=== PATIENT | female | born 1965 | race Hispanic/Latino ===

== ENCOUNTER 2017-07-27 10:56 | Emergency (ER) | payer MEDICAID ==
[2017-07-27 11:54] LABS: Basophils # (Auto) 0.1 K/mm3 (0.0-0.1); Basophils % (Auto) 1.7 % (0.0-1.8); Eosinophils # (Auto) 0.1 K/mm3 (0.0-0.4); Eosinophils % (Auto) 1.5 % (0.0-4.3); Hematocrit 41.4 % (30.3-42.9); Lymphocytes # (Auto) 1.5 K/mm3 (1.2-5.4); Lymphocytes % (Auto) 29.4 % (13.4-35.0); Mean Corpuscular HGB Conc 34 % (30-34); Mean Corpuscular Hemoglobin 30 pg (28-32); Mean Corpuscular Volume 88 fl (79-97); Monocytes # (Auto) 0.4 K/mm3 (0.0-0.8); Monocytes % (Auto) 7.5 % (0.0-7.3); Platelet Count 246 K/mm3 (140-440); Red Cell Distribution Width 13.6 % (13.2-15.2)
[2017-07-27 11:56] LABS: BUN/Creatinine Ratio 13; Blood Urea Nitrogen 10 mg/dL (7-17); Calcium 9.4 mg/dL (8.4-10.2); Hemolysis Index 8
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
[2017-07-28] MEDS ORDERED: PERCOCET 5/325 PO ONE ×2 (02:24→13:39)
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
[2017-07-28] MEDS: CYMBALTA PO SCH (17:49)
[2017-07-28] MEDS: REMERON PO SCH (21:57)
[2017-07-28 22:44] LABS: Bacteria,Urine 1+ /HPF (Negative); Bilirubin,Urine NEG (Negative); Blood,Urine SM (Negative); Color,Urine Yellow (Yellow); Nitrite,Urine NEG (Negative); Protein,Urine <15 mg/dL mg/dL (Negative); Urobilinogen,Urine < 2.0 mg/dL (<2.0)
[2017-07-28 22:51] LABS: Amphetamine Screen,Urine PRESUMPTIVE NEGATIVE; Benzodiazepines Screen,Urine PRESUMPTIVE NEGATIVE; Cannabinoid Screen,Urine PRESUMPTIVE NEGATIVE; Cocaine Screen,Urine PRESUMPTIVE NEGATIVE; Methadone Screen,Urine PRESUMPTIVE NEGATIVE; Opiate Screen,Urine PRESUMPTIVE NEGATIVE
[2017-07-29] MEDS: PERCOCET 5/325 PO PRN ×2 (10:53→21:39)
[2017-07-29] MEDS: CYMBALTA PO SCH (10:53)
--- NOTE | 2017-07-29 14:10 | Progress Note ---
Subjective - Reason for Consult Consult date: 07/29/17 Reason for consult: Psychiatry Follow-up - Chief Complaint Chief complaint: "I want my meds taking care of" 52 y.o. white female presenting to [facility] for SI's. Today the patient is calm and cooperative during the assessment. She stated that she slept last night for the first time in 2 days. She stated that she was worrying about her medications being taking care of. She does rate her anxiety 5/10, with 10 being the worse. She denies SI/HI's and AVH'. She denies any side effects of her medications. Mental Status Exam - Vital signs Last Vital Signs Temp 98.1 F 07/28/17 20:00 Pulse 72 07/28/17 20:00 Resp 18 07/28/17 20:00 BP 136/80 07/28/17 20:00 Pulse Ox 98 07/28/17 20:00 - Exam Narrative exam: MSE: Appearance: calm, cooperative Behavior: regular eye contact Speech: regular rate and tone Mood: "okay" Affect: congruent to mood Thought Process: circumstantial Thought Content: denies SI/HI's and AVH's Motor Activity: ambulatory Cognition: A/O x 3 Insight: variable Judgment: variable Assessment and Plan Impression: MDD, Severe Type. Today the patient is calm and cooperative during the assessment. DDx: R/O Bipolar DO Recommendation/Plan: Continue 1013 with placement to inpatient psy services. Continue Cymbalta 60 mg PO daily for depression, Remeron 15 mg PO HS for sleep consolidation, and Klonopin 0.5 mg PO Q8hrs for anxiety. Discussed the possible suicidality/medication induced patricio reference antidepressants with patient.
[2017-07-29] MEDS: REMERON PO SCH (21:44)
[2017-07-30] MEDS: PERCOCET 5/325 PO PRN ×4 (05:00→22:28)
[2017-07-30] MEDS: CYMBALTA PO SCH (09:37)
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
[2017-07-30] MEDS: REMERON PO SCH (22:30)
[2017-07-31] MEDS: PERCOCET 5/325 PO PRN ×3 (07:30→19:30)
[2017-07-31] MEDS: CYMBALTA PO SCH (11:48)
--- NOTE | 2017-07-31 21:13 | Progress Note ---
Subjective - Reason for Consult Consult date: 07/31/17 Reason for consult: follow up - Chief Complaint Chief complaint: "I want to go back [to the nursing home]" 52 y.o. white female presenting to [facility] for SI's. Today the patient is calm and cooperative during the assessment. She stated that she slept last night.She states she does not think she needs to go to the hospital. She denies SI/HI's. She wants to return to the nursing home. She denies any side effects of her medications. Mental Status Exam - Vital signs Last Vital Signs Temp 98.8 F 07/31/17 07:50 Pulse 91 H 07/31/17 07:50 Resp 15 07/31/17 07:50 BP 115/72 07/31/17 07:50 Pulse Ox 96 07/31/17 07:50 - Exam Narrative exam: Appearance: calm, cooperative Behavior: regular eye contact Speech: regular rate and tone Mood: "okay" Affect: congruent to mood Thought Process: circumstantial Thought Content: denies SI/HI's. no AVH Motor Activity: paraplegia, uses wheelchair Cognition: A/O x 3 Insight: variable Judgment: variable Assessment and Plan Impression: MDD, Severe Type. Today the patient is calm and cooperative during the assessment. No suicidal ideation. No acute safety concerns identified. She attributes her recent symptoms leading to the ER visit were related to not having medications. She is concerned about having enough medications until her next appointment, at the end of the month. Recommendation/Plan: Rescind 1013 and return to nursing home. I communicated with her nursing home leader, Ms. Mcarthur. Her main concern was that Ms. Duvall is not at risk of harming herself or others, and that she has her medications. It is recommended she continue her home medications. She has appointments for Warren Tse MD (psychiatrist) and paint technician in 10 days. Recommend to Continue Cymbalta 60 mg PO daily for depression, Remeron 15 mg PO HS for sleep consolidation, and Klonopin 0.5 mg PO Q8hrs for anxiety. Discussed the possible suicidality/medication induced patricio reference antidepressants with patient. She takes percocet from her pain management provider and reports being on it for years. She denies any side effects. She will need transportation back to the nursing home
[2017-07-31] MEDS: REMERON PO SCH (22:01)
[2017-08-01] MEDS: PERCOCET 5/325 PO PRN (07:09)
[2017-08-01 08:15] VITALS: BP 108/75
--- NOTE | 2017-08-01 10:09 | Progress Note ---
Subjective - Reason for Consult Consult date: 08/01/17 Reason for consult: Psychiatry Follow-up - Chief Complaint Chief complaint: "I want to go back to my [facility]]" 52 y.o. white female presenting to [facility] for SI's. Today the patient is calm and cooperative during the assessment. She stated that she look forward to seeing her psychiatrist once discharged. She denies SI/HI's and AVH's. She denies any side effects of her medications. Mental Status Exam - Vital signs Last Vital Signs Temp 98.4 F 08/01/17 08:14 Pulse 85 08/01/17 08:14 Resp 18 08/01/17 08:14 BP 108/75 08/01/17 08:14 Pulse Ox 96 08/01/17 08:14 - Exam Narrative exam: MSE: Appearance: calm, cooperative Behavior: regular eye contact Speech: regular rate and tone Mood: "okay" Affect: congruent to mood Thought Process: linear Thought Content: denies SI/HI's and AVH's Motor Activity: ambulatory Cognition: A/O x 3 Insight: appropriate Judgment: appropriate Assessment and Plan Impression: MDD, Severe Type. Today the patient is calm and cooperative during the assessment. Patient is no threat to self. DDx: R/O Bipolar DO Recommendation/Plan: 1013 rescinded yesterday. Continue Cymbalta 60 mg PO daily for depression, Remeron 15 mg PO HS for sleep consolidation, and Klonopin 0.5 mg PO Q8hrs for anxiety. Discussed the possible suicidality/medication induced patricio reference antidepressants with patient. She has appointments with Warren Tse MD (psychiatrist) and sign painter helper in 10 days. Supervisor [employer] involvement, patient will need assistance getting back to her [facility].
[2017-08-01] MEDS: CYMBALTA PO SCH (10:21)
== END 2017-08-01 12:16 | disposition home or self-care (01) ==
LOC: ED 10:56 → EEVIPCON 10:56 → ED 08-01 12:16
DX: F29 Unspecified psychosis not due to a substance or known physiological condition (principal); F32.9 Major depressive disorder, single episode, unspecified; F17.200 Nicotine dependence, unspecified, uncomplicated; Z88.8 Allergy status to other drugs, medicaments and biological substances
CPT/HCPCS: 36415; 80048; 80307; 81001; 85025; 99284; G0480; 80320; 99285

== ENCOUNTER 2019-08-12 13:10 | Emergency (ER) | payer MEDICAID ==
[2019-08-12 13:21] VITALS: BP 127/64
--- NOTE | 2019-08-12 14:37 | Emergency Department Report ---
Chief Complaint: Pain General Stated Complaint: LEG AND BACK PAIN - HPI History of Present Illness: 54 y o female presents to Ed with chronic back pain wanting med refill for percocet states dr kim on 08/16/19 Patient states that she was seen by primary care doctor last week and was given Percocet for her pain still to follow-up with the orthopedic patient states she ran out of the medications and is pain. She denies any recent injuries or trauma, fever, dysuria, - ROS Review of Systems: all system reviewed and negative - Exam Vital Signs: Vital Signs 08/12/19 13:20 Temperature 99.1 F Pulse Rate 54 L Respiratory 18 Rate Blood Pressure 127/64 [Right] O2 Sat by Pulse 98 Oximetry Physical Exam: Back exam: No deformities noted, full range of motion., MSE screening note: Focused history and physical exam performed. Due to findings the following was ordered: ED Medical Decision Making - Medical Decision Making 54-year-old female presents with chronic back pain. Discussed the patient follow up with her doctor also be unable to refill her medication ER today. Patient understands instructions. Bowel sounds are normal she is in no acute distress. ED Disposition for MSE Clinical Impression: Chronic back pain Disposition: Z-07 MED SCREENING EXAM-LEFT Is pt being admited?: No Does the pt Need Aspirin: No Condition: Stable Instructions: Chronic Back Pain (ED) Referrals: PRIMARY CARE, [Primary Care Provider] - 3-5 Days Forms: Accompanied Note, Work/School Release Form(ED) Time of Disposition: 14:38
== END 2019-08-12 15:29 | disposition left against medical advice (07) ==
LOC: ED 13:10
DX: M54.9 Dorsalgia, unspecified (principal); G89.29 Other chronic pain
CPT/HCPCS: 99282

== ENCOUNTER 2021-12-07 15:22 | Emergency (ER) | payer SELFPAY ==
[2021-12-07] MEDS ORDERED: oxyCODONE /ACETAMINOPHEN 5-325MG TAB PO ONE (16:00)
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
[2021-12-07 16:34] LABS: Basophils # (Auto) 0.1 K/mm3 (0.0-0.1); Basophils % (Auto) 0.8 % (0.0-1.8); Eosinophils # (Auto) 0.1 K/mm3 (0.0-0.4); Eosinophils % (Auto) 1.5 % (0.0-4.3); Hematocrit 39.4 % (30.3-42.9); Lymphocytes # (Auto) 1.7 K/mm3 (1.2-5.4); Lymphocytes % (Auto) 20.1 % (13.4-35.0); Mean Corpuscular HGB Conc 33 % (30-34); Mean Corpuscular Volume 88 fl (79-97); Monocytes # (Auto) 0.5 K/mm3 (0.0-0.8); Monocytes % (Auto) 5.8 % (0.0-7.3); Platelet Count 272 K/mm3 (140-440); Red Blood Count 4.47 M/mm3 (3.65-5.03); Red Cell Distribution Width 16.5 % (13.2-15.2)
[2021-12-07 16:54] LABS: Alanine Aminotransferase 11 units/L (7-56); Albumin 4.2 g/dL (3.9-5); Blood Urea Nitrogen 16 mg/dL (7-17); Calcium 9.1 mg/dL (8.4-10.2); Hemolysis Index 29
[2021-12-07 16:55] LABS: BUN/Creatinine Ratio 27
[2021-12-07 17:59] LABS: Benzodiazepines Screen,Urine Negative; Cannabinoid Screen,Urine Negative; Cocaine Screen,Urine Negative; Methadone Screen,Urine Negative; Opiate Screen,Urine Negative
[2021-12-07 18:02] LABS: Amphetamine Screen,Urine Positive
[2021-12-07 18:10] LABS: Amorphous Crystals,Urine Few; Bacteria,Urine 1+ /HPF (Negative); Bilirubin,Urine NEG (Negative); Blood,Urine NEG (Negative); Color,Urine Amber (Yellow); Mucus,Urine FEW /HPF; Triple Phosphate Crystal,Urine 1+; Urobilinogen,Urine < 2.0 mg/dL (<2.0)
[2021-12-07] MEDS ORDERED: LORazepam 2 MG/ML VIAL IV ONE (18:40)
[2021-12-07] MEDS ORDERED: LORazepam 2 MG/ML VIAL ONE (22:49)
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
--- NOTE | 2021-12-08 20:18 | Event Note ---
56-year-old female currently on 1013 awaiting acceptance. Vital signs unremarkable
[2021-12-08] MEDS ORDERED: IPRATROPIUM 0.02% NEBU 2.5 ML IH ONE (22:23)
[2021-12-08] MEDS ORDERED: ALBUTEROL 2.5 MG/3 ML NEBU IH ONE (22:23)
[2021-12-08] MEDS: traZODone 50 MG TAB PO SCH (22:43)
[2021-12-08] MEDS: ZIPRASIDONE MESYLATE 20 MG VIAL IM PRN (22:43)
--- NOTE | 2021-12-09 11:17 | Progress Note ---
Subjective - Reason for Consult Consult date: 12/09/21 Reason for consult: Psychosis - Chief Complaint Chief complaint: The patient was seen this morning. She continues to present with disorganized thoughts and paranoia " family putting drugs in the air." PAST PSYCHIATRIC HISTORY: PAST MEDICAL HISTORY: None reported or document Family Psychiatric History: None reported or documented SOCIAL HISTORY REVIEW OF SYSTEMS MENTAL STATUS EXAMINATION Diagnoses: Major depressive disorder with psychotic features Treatment Plan 1013 Continue home meds Zyprexa 5mg po BID Trazodone 50mg po QHS PSYCHOTHERAPY: Supportive psychotherapy provided MEDICAL: Per primary team DELIRIUM PRECAUTIONS: Please re-orient patient frequently, keep lights on during the day, and minimize benzodiazepines and opiates as these medications could worsen patient's confusion. 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 Will follow. Thank you for the consult. Case staffed with Dr. Leger Medications and Allergies Medications and Allergies Mental Status Exam - Vital signs Last Vital Signs Temp 98.9 F 12/09/21 09:53 Pulse 90 12/09/21 09:53 Resp 17 12/09/21 09:53 BP 133/74 12/09/21 09:53 Pulse Ox 97 12/09/21 09:53
--- NOTE | 2021-12-09 11:37 | Emergency Department Report ---
Blank Doc - Documentation Documentation: 56-year-old female on a 1013 for psychosis and paranoid thoughts awaiting plac ement. Patient has a history of chronic pain with Percocet use. [place] prescription monitoring site below patient is requesting pain medication. Last received a dose of Percocet several days ago on December 07 in the ED as per [place] prescription monitoring to site patient takes the following medication 11/20/2021 11/20/2021 1 Oxycodone-Acetaminophen 5-325 90.00 30 Da Bur [id number] Silvano ([id number]) 0 11/05/2021 09/16/2021 1 Clonazepam 1 Mg Tablet 60.00 30 Da Bur [id number] [facility]vano ([id number]) 1 10/21/2021 09/16/2021 1 Oxycodone-Acetaminophen 5-325 90.00 30 Da Bur [id number] [facility]vano ([id number]) 0 10/08/2021 09/16/2021 1 Clonazepam 1 Mg Tablet 60.00 30 Da Bur [id number] [facility]ano ([id number]) 0 09/16/2021 09/16/2021 1 Oxycodone-Acetaminophen 5-325 90.00 30 Da Bur [id number] [facility]vano ([id number]) 0 09/11/2021 07/17/2021 1 Clonazepam 1 Mg Tablet 60.00 30 Da Bur [id number] Silvano ([id number]) 2 Patient is prescribed Percocet 53 25 TID times daily as per [place] prescription monitoring site. She will be placed on Percocet prn tid while in the ED for chronic pain.
[2021-12-09] MEDS: oxyCODONE /ACETAMINOPHEN 5-325MG TAB PO PRN (12:34)
[2021-12-09] MEDS: ZIPRASIDONE MESYLATE 20 MG VIAL IM PRN (17:30)
[2021-12-09] MEDS: traZODone 50 MG TAB PO SCH (22:00)
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
[2021-12-10] MEDS: oxyCODONE /ACETAMINOPHEN 5-325MG TAB PO PRN (14:26)
--- NOTE | 2021-12-10 15:38 | Emergency Department Report ---
Blank Doc - Documentation Documentation: 12/10/21 1530 I have reviewed patient's note from psych. She has been cleared and his 1013 is discontinued. Given this plan for patient to be discharged home with appropriate resources and prescriptions.
[2021-12-10 21:49] VITALS: BP 128/82
== END 2021-12-10 20:30 | disposition home or self-care (01) ==
LOC: ED 15:22 → EEVIPCON 15:22 → ED 12-10 20:30
DX: F15.10 Other stimulant abuse, uncomplicated (principal); I10 Essential (primary) hypertension; F32.9 Major depressive disorder, single episode, unspecified; Z20.822 Contact with and (suspected) exposure to COVID-19; F17.200 Nicotine dependence, unspecified, uncomplicated; F12.90 Cannabis use, unspecified, uncomplicated; Z98.890 Other specified postprocedural states; Z79.899 Other long term (current) drug therapy
CPT/HCPCS: 36415; 80053; 80307; 81001; 85025; 96372; 96374; 99284; J2060; J3486; U0003; 80320; G0480

== ENCOUNTER 2021-12-15 16:45 | Emergency (ER) | payer SELFPAY ==
[2021-12-16 20:24] LABS: Bacteria,Urine 2+ /HPF (Negative); Mucus,Urine 1+ /HPF
[2021-12-16 20:37] LABS: WBC,Urine > 182.0 /HPF (0.0-6.0)
[2021-12-16 20:43] LABS: Color,Urine Yellow (Yellow)
[2021-12-16 20:44] LABS: Bilirubin,Urine Negative (Negative); Blood,Urine Moderate (Negative); Urobilinogen,Urine < 2.0 mg/dL (<2.0)
[2021-12-16] MEDS ORDERED: SODIUM CHLORIDE 0.9% 1000 ML 1,000 ML IV ONE (21:33)
[2021-12-16] MEDS ORDERED: cefTRIAXone/NS 2 GM/100 ML 2 GM/100 ML BAG IV ONE (21:39)
--- NOTE | 2021-12-16 22:08 | XRay Report ---
RIGHT FOOT 3 VIEWS INDICATION / CLINICAL INFORMATION: chronic wound to hallux and mid foot COMPARISON: Right foot series from 03/21/2020. FINDINGS: BONES and JOINT(S): No acute fracture or subluxation. The bones are similarly demineralized. No areas of cortical destruction are seen. Partially visualized internal fixation of the tibia is unremarkabl e as seen. SOFT TISSUES: There is moderate generalized edema. No distinct soft tissue defect or other significan t abnormality. ADDITIONAL FINDINGS: None. IMPRESSION: 1. Moderate right foot edema without other acute findings. Signer Name: Juan Schumacher MD Signed: 12/16/2021 10:03 PM Workstation Name: [id number]
[2021-12-16 22:56] LABS: Basophils # (Auto) 0.1 K/mm3 (0.0-0.1); Basophils % (Auto) 1.1 % (0.0-1.8); Eosinophils # (Auto) 0.2 K/mm3 (0.0-0.4); Eosinophils % (Auto) 2.6 % (0.0-4.3); Hematocrit 39.1 % (30.3-42.9); Hemoglobin 12.8 gm/dl (10.1-14.3); Lymphocytes # (Auto) 1.4 K/mm3 (1.2-5.4); Lymphocytes % (Auto) 16.9 % (13.4-35.0); Mean Corpuscular HGB Conc 33 % (30-34); Mean Corpuscular Volume 89 fl (79-97); Monocytes # (Auto) 0.8 K/mm3 (0.0-0.8); Monocytes % (Auto) 9.5 % (0.0-7.3); Platelet Count 288 K/mm3 (140-440); Red Blood Count 4.39 M/mm3 (3.65-5.03); Red Cell Distribution Width 16.1 % (13.2-15.2)
[2021-12-16 23:11] LABS: Blood Urea Nitrogen 12 mg/dL (7-17); Calcium 9.4 mg/dL (8.4-10.2); Hemolysis Index 6
[2021-12-16 23:13] LABS: BUN/Creatinine Ratio 30
[2021-12-16] MEDS ORDERED: oxyCODONE /ACETAMINOPHEN 5-325MG TAB PO ONE (23:27)
[2021-12-16] MEDS ORDERED: KETOROLAC 30 MG/1 ML INJ IV STA (23:28)
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
[2021-12-17 10:20] VITALS: BP 127/65
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
[2021-12-17] MEDS ORDERED: risperiDONE 1 MG TAB PO SCH (13:00)
[2021-12-17] MEDS ORDERED: DIVALPROEX DR 500 MG TAB PO SCH (13:00)
[2021-12-17] MEDS ORDERED: traZODone 50 MG TAB PO SCH (22:00)
== END 2021-12-17 12:57 | disposition home or self-care (01) ==
LOC: ED 16:45
DX: N39.0 Urinary tract infection, site not specified (principal); I10 Essential (primary) hypertension; F31.9 Bipolar disorder, unspecified; G89.29 Other chronic pain; F20.9 Schizophrenia, unspecified; Z98.890 Other specified postprocedural states; F17.290 Nicotine dependence, other tobacco product, uncomplicated; Z88.8 Allergy status to other drugs, medicaments and biological substances
CPT/HCPCS: 36415; 73630; 80048; 81001; 85025; 96365; 96375; 99284; J0696; J7030; J1885